=== PATIENT | female | born 1985 | race Hispanic/Latino ===

== ENCOUNTER → 2023-08-18 08:29 | Outpatient (REF) | payer BC, SELFPAY ==
[2023-08-18 09:12] LABS: % Basophils 0.5 % (0-2); % Eosinophils 3.1 % (0-6); % Immature Granulocytes 0.1 % (0-0.5); % Lymphocytes 35.8 % (20.5-51.1); % Monocytes 7.4 % (1.7-9.3); % Neutrophils 53.1 % (42.2-75.2); Absolute Eosinophils 0.3 10^3/uL (0-0.7); Absolute Lymphocytes 2.9 10^3/uL (1.2-3.4); Absolute Monocytes 0.6 10^3/uL (0.1-0.6); Absolute Neutrophils 4.3 10^3/uL (1.4-6.5); Hemoglobin 13.2 g/dL (12.0-16.0); Mean Corpuscular Hgb 30.2 pg (27.0-31.0); Mean Corpuscular Volume 91.5 fL (81.0-99.0); Mean Platelet Volume 9.9 fL (7.4-10.4); Nucleated Red Blood Cells % 0 %; Platelet Count 266 10^3/uL (130-400); Red Blood Cell Count 4.37 10^6/uL (4.20-5.40); Red Cell Dist. Width 13.6 % (11.5-14.5); White Blood Cell Count 8.1 10^3/uL (4.8-10.8)
[2023-08-18 10:22] LABS: ALT (SGPT) 17 U/L (0-35); AST (SGOT) 24 U/L (14-36); Albumin 4.5 g/dl (3.5-5.0); Alkaline Phosphatase 59 U/L (38-126); Blood Urea Nitrogen 10 mg/dl (7-17); Calcium 9.7 mg/dl (8.4-10.2); Carbon Dioxide 25 mmol/L (22-30); Chloride 105 mmol/L (98-107); Glucose 88 mg/dl (70-99); HDL Cholesterol 73 mg/dl; Potassium 4.3 mmol/L (3.5-5.1); Sodium 138 mmol/L (135-145); Total Bilirubin 1.4 mg/dl (0.2-1.3); Total Protein 7.4 g/dl (6.3-8.2); Triglyceride 61 mg/dl (10-149); Very Low Density Lipoprotein 12 mg/dl (0-30); eGFR > 60.00
[2023-08-18 10:33] LABS: TSH Reflex To Free T4 1.22 uIU/ml (0.47-4.68)
[2023-08-18 10:49] LABS: LDL Cholesterol, Calculated 90 mg/dl; Total Cholesterol 175 mg/dl (50-199)
== END ==
LOC: REG 08:29
PROVIDERS: ATTENDING PHYSICIAN Physician Assistant Medical
DX: Z00.00 Encounter for general adult medical examination without abnormal findings (principal)
CPT/HCPCS: 36415; 80053; 80061; 84443; 85025

== ENCOUNTER → 2024-05-31 08:56 | Outpatient (REF) | payer BC, SELFPAY ==
[2024-05-31 09:42] LABS: % Basophils 0.6 % (0-2); % Eosinophils 1.4 % (0-6); % Immature Granulocytes 0.3 % (0-0.5); % Lymphocytes 21.6 % (20.5-51.1); % Monocytes 11.3 % (1.7-9.3); % Neutrophils 64.8 % (42.2-75.2); Absolute Eosinophils 0.1 10^3/uL (0-0.7); Absolute Lymphocytes 1.6 10^3/uL (1.2-3.4); Absolute Monocytes 0.8 10^3/uL (0.1-0.6); Absolute Neutrophils 4.6 10^3/uL (1.4-6.5); Hematocrit 42.3 % (37.0-47.0); Mean Corp Hgb Conc. 33.1 g/dL (33.0-37.0); Mean Corpuscular Hgb 30.2 pg (27.0-31.0); Mean Corpuscular Volume 91.4 fL (81.0-99.0); Mean Platelet Volume 10.5 fL (7.4-10.4); Nucleated Red Blood Cells % 0 %; Platelet Count 223 10^3/uL (130-400); Red Blood Cell Count 4.63 10^6/uL (4.20-5.40); Red Cell Dist. Width 13.2 % (11.5-14.5); White Blood Cell Count 7.2 10^3/uL (4.8-10.8)
[2024-05-31 11:33] LABS: ALT (SGPT) 14 U/L (0-35); AST (SGOT) 20 U/L (14-36); Alkaline Phosphatase 63 U/L (38-126); Blood Urea Nitrogen 6 mg/dl (7-17); Calcium 9.3 mg/dl (8.4-10.2); Carbon Dioxide 28 mmol/L (22-30); Chloride 102 mmol/L (98-107); Glucose 84 mg/dl (70-99); HDL Cholesterol 60 mg/dl; LDL Cholesterol, Calculated 82 mg/dl; Potassium 4.9 mmol/L (3.5-5.1); Sodium 138 mmol/L (135-145); Total Cholesterol 150 mg/dl (50-199); Total Protein 7.6 g/dl (6.3-8.2); Triglyceride 43 mg/dl (10-149); Very Low Density Lipoprotein 8 mg/dl (0-30); eGFR > 60.00
[2024-05-31 11:40] LABS: TSH Reflex To Free T4 1.08 uIU/ml (0.47-4.68)
== END ==
LOC: REG 08:56
PROVIDERS: ATTENDING PHYSICIAN Physician Assistant Medical
DX: Z00.00 Encounter for general adult medical examination without abnormal findings (principal)
CPT/HCPCS: 36415; 80053; 80061; 84443; 85025

== ENCOUNTER → 2024-09-13 09:04 | Outpatient (REF) | payer BC, SELFPAY | LOC: CPAP 09:04 | PROVIDERS: ATTENDING PHYSICIAN Obstetrics & Gynecology | DX: Z01.419 Encounter for gynecological examination (general) (routine) without abnormal findings (principal); Z11.51 Encounter for screening for human papillomavirus (HPV) | CPT/HCPCS: 87624 ==